=== PATIENT | male | born 1975 | race African-American/Black ===

== ENCOUNTER → 2016-09-25 | Day surgery (SDC) | payer MEDICAID, OTHER ==
[~2016-09-25] VITALS: Ht 170.2 cm; Wt 127.9 kg
[~2016-09-25] MED LIST: ACETAMINOPHEN 325 MG TAB PO PRN; ACETAMINOPHEN/HYDROcodone 325 MG/5 MG TAB PO PRN; ATOR1TAB18 PO; BUPIVACAINE/EPINEPHRINE 0.25% PF 30 ML VIAL ONE; CLON0.1T PO; DO NOT ADM ANY ANTICOAGULANT DRUGS XX PRN; FAMOTIDINE 20 MG/2 ML VIAL ONE; FURO80TA PO; GABA300C5 PO; GELFOAM SIZE 100 ONE; GLIP10TA6 PO; HEPARIN SODIUM - SQ 10,000 UNITS/ML VIAL ONE; HYDR10TA65 PO; INSULIN HUMAN REGULAR 1,000 UNITS/10 ML VIAL SQ PRN; ISOS20TA PO; ISOS20TA2 PO; LACTATED RINGER'S 1000 ML IV SCH; LEVEMIR SQ; LOSA100T PO; METO100T PO; METO10TA4 PO; METO200T3 PO; METOCLOPRAMIDE HCL 10 MG/2 ML VIAL ONE; METOPROLOL TARTRATE 25 MG TAB PO PRN; MIDAZOLAM HCL 2 MG/2 ML VIAL ONE; MORPHINE SULFATE 4 MG/ML INJ IV PRN; NOVOLOGP2 SQ; NOVONP2 SQ; ONDANSETRON HCL 4 MG/2 ML VIAL IV PUSH ONE; ONDANSETRON HCL 4 MG/2 ML VIAL IV PUSH PRN; PHENYLEPH/NS 1000 MCG/10 ML SYR IV ONE; PIOG30TA4 PO; PROPOFOL 200 MG/20 ML AMP IV ONE; PROTAMINE SULFATE 50 MG/5 ML VIAL ONE; SODIUM CHLOR 0.9% 250 ML INJ 500 ML IV ONE; SODIUM CHLORID 0.9% 500 ML INJ 500 ML IV ONE; SODIUM CHLORID 0.9% 500 ML IV SCH; SODIUM CHLORIDE 0.9% FLUSH 5 ML FLUSH IV FLUSH PRN; SODIUM CHLORIDE 0.9% FLUSH 5 ML FLUSH IV FLUSH SCH; THROMBIN (TOPICAL) 5,000 UNIT VIAL ONE; TRAD5TAB PO; VANCOMYCIN HCL 1000 MG VIAL ONE; ceFAZolin INJ 1,000 MG VIAL ONE; ePHEDrine/NS 25 MG/5 ML SYR IV ONE
[2016-09-25 11:52] LABS: AUTOMATED NEUTROPHIL # 5.1 TH/MM3 (1.8-7.7); BASOPHIL # 0.1 TH/MM3 (0-0.2); BASOPHIL % 1.4 % (0.0-2.0); EOSINOPHIL # 0.4 TH/MM3 (0-0.4); HEMATOCRIT 31.5 % (39.0-51.0); HEMO FLAGS DIFF FINAL; LYMPH % 23.5 % (9.0-44.0); LYMPHOCYTE # 1.9 TH/MM3 (1.0-4.8); MEAN CELL VOLUME 83.3 FL (80.0-100.0); MEAN CORPUSCULAR HEMOGLOBIN 27.1 PG (27.0-34.0); MEAN CORPUSCULAR HGB CONC 32.5 % (32.0-36.0); MONO % 7.5 % (0.0-8.0); NEUT % 62.6 % (16.0-70.0); PLATELET COUNT 183 TH/MM3 (150-450); RED BLOOD COUNT 3.78 MIL/MM3 (4.50-5.90); RED CELL DISTRIBUTION WIDTH 15.5 % (11.6-17.2); WHITE BLOOD COUNT 8.2 TH/MM3 (4.0-11.0)
[2016-09-25 12:01] VITALS: BP 162/88; PULSE 77; RESP 20; TEMP 97.3; O2SAT 96
[2016-09-25 12:09] LABS: BICARBONATE 26.5 MEQ/L (21.0-32.0); POTASSIUM 4.1 MEQ/L (3.5-5.1)
[2016-09-25 12:10] LABS: APTT (PATIENT) 29.4 SEC (24.3-30.1); PROTHROMBIN TIME - PATIENT 11.4 SEC (9.8-11.6)
--- NOTE | 2016-09-25 13:23 | RADRPT ---
EXAM DATE/TIME: 09/25/2016 11:40 [facility] COMPARISON: No previous studies available for comparison. INDICATIONS: Evaluate for pneumonia, pneumothorax, or communicable disease. Pre op AV fistula. MEDICAL HISTORY: None. SURGICAL HISTORY: None. ENCOUNTER: Initial ACUITY: 1 day PAIN SCORE: 0/10 LOCATION: Chest FINDINGS: A right internal jugular tunnel dialysis catheter has its tips in the superior vena cava and right at rium. There is no pneumothorax. The heart is enlarged. Minimal central pulmonary vascular congesti on is noted. CONCLUSION: 1. Cardiomegaly. 2. Minimal central pulmonary vascular congestion. Randolph Hilton MD on September 25, 2016 at 13:11 Board Certified Radiologist. This report was verified electronically.
[2016-09-25 18:15] VITALS: BP 136/71; PULSE 80; RESP 18; TEMP 97.6; O2SAT 96
--- NOTE | 2016-09-26 17:06 | EKG ---
Date Performed: 09/25/2016 Time Performed: 12:15:32 PTAGE: 40 years EKG: Sinus rhythm NONSPECIFIC T-WAVE ABNORMALITY ABNORMAL ECG NO PREVIOUS TRACING DOCTOR: Jasiel Prado Interpretating Date/Time 09/26/2016 17:02:30
--- NOTE | 2016-09-26 21:52 | MP ---
cc: PEBBLES HOBBS DATE OF SURGERY 09/25/2016 PREOPERATIVE DIAGNOSIS End-stage renal disease. POSTOPERATIVE DIAGNOSIS End-stage renal disease. PROCEDURE Revision of left upper extremity radiocephalic AV fistula. SURGEON Pebbles Hobbs DO [employer] WORK[employer] Miguel Coy FLUIDS Approximately 500 mL ESTIMATED BLOOD LOSS 50 ANESTHESIA General plus 20 cc of 0.25% Marcaine with epinephrine. PROCEDURE DETAILS The patient's left upper extremity prepped and draped in sterile fashion. I made a longitudinal incision over the previously marked cephalic vein in the left upper extremity. It should be noted the patient had a good thrill proximally but distally did not have a good thrill and the vein itself appeared to be about 0.5 cm to 1.0 cm deep in the arm. Based on this I made a longitudinal incision along the length of the vein and tied off side branches with small clips and 4-0 silk and 2-0 silk sutures dependent on the size. Once I mobilized the cephalic vein it should be noted by Doppler there was appropriate sound but real good thrill in the mid to distal cephalic vein as it approached the elbow. There was definitely area near the anastomosis where the vein appeared to have hardly any signal at all. Based on this I suspect the previous arterial anastomosis done by the outside surgeon either had a high grade stenosis versus an occlusion. Since I had the vein mobilized I found a new area of the radial artery more proximally. I dissected out the paired radial veins and performed. I gave the patient 3000 units of heparin, used the pediatric profunda clamps for control of the radial artery proximally and distally and used an 11-blade to make an arteriotomy. It should be noted that the vein appeared to be about 2-3 mm in diameter. I then divided and used a 0 suture ligature near the wrist for my cephalic vein and then once I divided it, it should be noted that this area had a hole the size of a string in the center and there was extensive hyperplasia of this vessel. I removed the hyperplastic segment and then in a cobrahead fashion I fashioned my cephalic vein as it approached the wrist. I then used a 5-0 Prolene on median one in a parachute fashion in order to perform my end-to-side anastomosis. It should be noted that the cephalic vein distal to this before my anastomosis I had marked it anteriorly and irrigated it and the vein distended appropriately. Once I was finished with my anastomosis, the vein had a nice thrill and there was good distal blood flow in the radial artery distal to my anastomosis. As the patient had a muscular as well as large forearm I undermined it and used 2-0 Vicryl [id number] sutures in order to approximate the deep tissue. In order to bring the two skin edges together I had to fashion some subcu flaps and then used interrupted 3-0 Vicryl absorbable sutures and 4-0 Monocryl for the skin making sure not to impinge on the on the vein. I then used Dermabond over the skin and then placed a Kerlix dressing after it dried with a left upper extremity sling. The patient tolerated the procedure well and was taken to the PACU at the end of the case, extubated. DO BASILIA Quiroz /5:08 PM /8:52 PM GABE
== END | disposition home or self-care (01) ==
LOC: HSDC 10:57
PROVIDERS: ATTEND Surgery
DX: N18.6 End stage renal disease (principal); E11.9 Type 2 diabetes mellitus without complications; Z79.4 Long term (current) use of insulin
CPT/HCPCS: 01844; 36832; 71010; 76937; 80048; 82948; 85025; 85610; 85730; 86850; 86900; 86901; 93005; J1644; J2250; J2370; J2405; J2720; J2765; J3010; J3370; J7040; J7050; J7120; J0690

== ENCOUNTER → 2016-11-22 | Outpatient (CLI) | payer MEDICAID, MEDICARE ==
[~2016-11-22] MED LIST changes: -ACETAMINOPHEN 325 MG TAB PO PRN; -ACETAMINOPHEN/HYDROcodone 325 MG/5 MG TAB PO PRN; -BUPIVACAINE/EPINEPHRINE 0.25% PF 30 ML VIAL ONE; -DO NOT ADM ANY ANTICOAGULANT DRUGS XX PRN; -FAMOTIDINE 20 MG/2 ML VIAL ONE; -GELFOAM SIZE 100 ONE; -HEPARIN SODIUM - SQ 10,000 UNITS/ML VIAL ONE; -INSULIN HUMAN REGULAR 1,000 UNITS/10 ML VIAL SQ PRN; -ISOS20TA PO; -LACTATED RINGER'S 1000 ML IV SCH; -METOCLOPRAMIDE HCL 10 MG/2 ML VIAL ONE; -METOPROLOL TARTRATE 25 MG TAB PO PRN; -MIDAZOLAM HCL 2 MG/2 ML VIAL ONE; -MORPHINE SULFATE 4 MG/ML INJ IV PRN; -NOVONP2 SQ; -ONDANSETRON HCL 4 MG/2 ML VIAL IV PUSH ONE; -ONDANSETRON HCL 4 MG/2 ML VIAL IV PUSH PRN; -PHENYLEPH/NS 1000 MCG/10 ML SYR IV ONE; -PROPOFOL 200 MG/20 ML AMP IV ONE; -PROTAMINE SULFATE 50 MG/5 ML VIAL ONE; -SODIUM CHLOR 0.9% 250 ML INJ 500 ML IV ONE; -SODIUM CHLORID 0.9% 500 ML INJ 500 ML IV ONE; -SODIUM CHLORID 0.9% 500 ML IV SCH; -SODIUM CHLORIDE 0.9% FLUSH 5 ML FLUSH IV FLUSH PRN; -SODIUM CHLORIDE 0.9% FLUSH 5 ML FLUSH IV FLUSH SCH; -THROMBIN (TOPICAL) 5,000 UNIT VIAL ONE; -VANCOMYCIN HCL 1000 MG VIAL ONE; -ceFAZolin INJ 1,000 MG VIAL ONE; -ePHEDrine/NS 25 MG/5 ML SYR IV ONE
[2016-11-22 08:55] LABS: HEMATOCRIT 34.6 % (39.0-51.0); MEAN CELL VOLUME 83.2 FL (80.0-100.0); MEAN CORPUSCULAR HEMOGLOBIN 27.4 PG (27.0-34.0); PLATELET COUNT 189 TH/MM3 (150-450); RED BLOOD COUNT 4.16 MIL/MM3 (4.50-5.90); RED CELL DISTRIBUTION WIDTH 14.8 % (11.6-17.2); REVIEW FLAG FINAL; WHITE BLOOD COUNT 7.6 TH/MM3 (4.0-11.0)
[2016-11-22 09:35] LABS: BICARBONATE 28.8 MEQ/L (21.0-32.0)
--- NOTE | 2016-11-22 09:59 | RADRPT ---
EXAM DATE/TIME: 11/22/2016 09:25 [facility] COMPARISON: No previous studies available for comparison. INDICATIONS : Evaluate for pneumonia, pneumothorax, and communicable disease. Pre-op nerve surger y, left forearm. MEDICAL HISTORY : Port/dialysis. SURGICAL HISTORY : None. ENCOUNTER: Initial ACUITY: 1 day PAIN SCORE: 0/10 LOCATION: Bilateral chest FINDINGS: There is mild compensated cardiomegaly. Dialysis catheter catheters in good position. The lungs are clear. CONCLUSION: Compensated cardiomegaly otherwise negative Hi Nava MD FACR on November 22, 2016 at 9:55 Board Certified Radiologist. This report was verified electronically.
--- NOTE | 2016-11-22 12:07 | EKG ---
Date Performed: 11/22/2016 Time Performed: 08:40:47 PTAGE: 41 years EKG: Sinus rhythm POSSIBLE LEFT ATRIAL ENLARGEMENT BORDERLINE ECG NO PREVIOUS TRACING DOCTOR: Amaury Watson Interpretating Date/Time 11/22/2016 12:05:59
== END ==
LOC: CPRE 08:21
PROVIDERS: ATTEND Surgery
DX: Z01.810 Encounter for preprocedural cardiovascular examination (principal); Z01.812 Encounter for preprocedural laboratory examination; N18.6 End stage renal disease; R94.31 Abnormal electrocardiogram [ECG] [EKG]
CPT/HCPCS: 36415; 71020; 80048; 85027; 86850; 86900; 86901; 93005